=== PATIENT | male | born 1940 | race Caucasian/White ===

== ENCOUNTER 2018-01-18 11:49 | Emergency (ER) | payer OTHER ==
[~2018-01-18 11:49] MED LIST: ASPI-515 PO; ATOR10TA9 PO; CHOL10003 PO; MULT-516 PO; RAMI10CA59 PO; SITA1TBM4 PO
[2018-01-18 11:50] VITALS: BP 174/89
[2018-01-18 13:56] LABS: MICROSCOPIC AUTO
[2018-01-18 14:09] LABS: CULTURE INDICATED? NO
== END 2018-01-18 16:11 | disposition home or self-care (01) ==
LOC: ED 15:51
DX: S82.65XA Nondisplaced fracture of lateral malleolus of left fibula, initial encounter for closed fracture (principal); S22.42XA Multiple fractures of ribs, left side, initial encounter for closed fracture; E11.9 Type 2 diabetes mellitus without complications; W11.XXXA Fall on and from ladder, initial encounter; Y93.89 Activity, other specified; Y92.009 Unspecified place in unspecified non-institutional (private) residence as the place of occurrence of the external cause; Y99.8 Other external cause status
CPT/HCPCS: 81001; 99285